=== PATIENT | female | born 1950 | race Caucasian/White ===

== ENCOUNTER 2017-12-10 14:05 | Outpatient (RCR) | payer MEDICARE, OTHER ==
[~2017-12-10 14:05] MED LIST: ACHYD1T PO; ATEN-147 PO; ATEN50TA PO; BUME0.5T3 PO; CHOL4PAC19 PO; DIAZ2TAB2 PO; DOCU100T7 PO; ESTR1TAB66 PO; HYDR-3454 PO; HYDR-700 PO; HYDR50TA76 PO; IBP800T PO; LOSA25TA5 PO; MECL-124 PO; METO5TAB79 PO; NF-ESOM40C PO; SCR1T1 PO; VALA500T17 PO; [UNRECOGNIZED DRUG - OTHER] VG
== END 2018-01-28 | disposition home or self-care (01) ==
PROVIDERS: ATTEND Nurse Practitioner Family
DX: M25.551 Pain in right hip (principal); M25.552 Pain in left hip; M79.7 Fibromyalgia

== ENCOUNTER → 2018-08-13 | Outpatient (CLI) | payer MEDICARE, OTHER ==
--- NOTE | 2018-08-13 19:40 | Diagnostic Imaging Report ---
The current study was also evaluated with a Computer Aided Detection (CAD) system. 3-D tomosynthesis was also performed and reviewed. Digital mammogram bilateral screening The study was compared to the prior exams of 09/19/2016, 06/14/14, and 12/16/2012. At this time, there are no current complaints. The current study was also evaluated with a Computer Aided Detection (CAD) system. FINDINGS: There are scattered fibroglandular densities in both breasts which could obscure a lesion. Overall, there does not appear to have been any significant change when compared to the prior exam. No primary or secondary sign of malignancy is noted. IMPRESSION: There is no radiographic evidence for malignancy. ACR BI-RADS Category 1: Negative. Result letter will be mailed to the patient. Note: At least 10% of breast cancer is not imaged by mammography. Dictated by: Dictated on workstation # [id number]
== END ==
LOC: RAD 09:27
PROVIDERS: ATTEND Nurse Practitioner Family
DX: Z12.31 Encounter for screening mammogram for malignant neoplasm of breast (principal)
CPT/HCPCS: 77067

== ENCOUNTER 2018-10-15 13:07 | Outpatient (RCR) | payer MEDICARE, OTHER | END 2019-01-13 | disposition home or self-care (01) | PROVIDERS: ATTEND Family Medicine | DX: M54.5 Low back pain (principal) ==

== ENCOUNTER → 2019-06-27 | Outpatient (CLI) | payer MEDICARE, OTHER ==
--- NOTE | 2019-06-27 13:25 | Diagnostic Imaging Report ---
PROCEDURE: CT abdomen and pelvis without contrast. TECHNIQUE: Multiple contiguous axial images were obtained through the abdomen and pelvis without the use of intravenous contrast. Auto Exposure Controls were utilized during the CT exam to meet ALARA standards for radiation dose reduction. INDICATION: Left lower quadrant abdominal pain and diarrhea. COMPARISON: 10/05/2015. FINDINGS: The lung bases are clear. No discrete liver mass is identified. The gallbladder is surgically absent. No biliary ductal dilatation is seen. The pancreas and spleen are unremarkable. No adrenal mass is detected. A low-density lesion in the upper pole of the right kidney measures 2.9 cm compared with 2.0 cm on the prior exam. This most likely represents a cyst. No calculus or hydronephrosis is identified. The aorta is nonaneurysmal. The small and large bowel loops are of normal caliber. There is diverticulosis of the sigmoid colon but no evidence of acute diverticulitis. The bowel loops are of normal caliber. No obstruction is seen. There is no ascites. The bladder is decompressed. No definite abdominal or pelvic lymphadenopathy is seen. IMPRESSION: 1. Uncomplicated diverticulosis. 2. Slight increase in the size of right renal cyst since the CT from 2014. 3. No acute feature is detected. Dictated by: Dictated on workstation # [id number]
== END ==
LOC: RAD 12:22
PROVIDERS: ATTEND Nurse Practitioner Family
DX: K57.30 Diverticulosis of large intestine without perforation or abscess without bleeding (principal); N28.1 Cyst of kidney, acquired; Z90.49 Acquired absence of other specified parts of digestive tract; Z87.19 Personal history of other diseases of the digestive system
CPT/HCPCS: 74176

== ENCOUNTER → 2021-08-13 | Outpatient (CLI) | payer MEDICARE, OTHER ==
--- NOTE | 2021-08-13 16:25 | Diagnostic Imaging Report ---
INDICATION: Routine screening. COMPARISON is made with prior mammograms from 08/13/2018 and 09/19/2016. 2-D and 3-D bilateral screening mammography was performed with CAD. Scattered fibroglandular densities are identified bilaterally. There are benign calcifications in both breasts. No mass or malignant-appearing microcalcifications are seen. Axillae are unremarkable. IMPRESSION: BI-RADS Category 2 No mammographic features suspicious for malignancy are identified. ACR BI-RADS Category 2: Benign findings. Result letter will be mailed to the patient. Note: At least 10% of breast cancer is not imaged by mammography. Dictated by: Dictated on workstation # [id number]
== END ==
LOC: RAD 13:00
PROVIDERS: ATTEND Family Medicine
DX: Z12.31 Encounter for screening mammogram for malignant neoplasm of breast (principal)
CPT/HCPCS: 77063; 77067